=== PATIENT | male | born 1985 | race Caucasian/White ===

== ENCOUNTER 2020-02-03 13:55 | Outpatient (CLI) | payer SELFPAY ==
[2020-02-03 15:01] LABS: SARS-CoV-2 Ag Negative (Negative)
== END 2020-02-03 13:56 | disposition home or self-care (01) ==
PROVIDERS: PCP Family Medicine; Visit Provider Family Medicine
DX: R68.89 Other general symptoms and signs (principal); Z20.828 Contact with and (suspected) exposure to other viral communicable diseases
CPT/HCPCS: 87426